=== PATIENT | female | born 1945 | race African-American/Black ===

== ENCOUNTER 2022-07-19 08:40 | Observation (INO) ==
[2022-07-19] MEDS ORDERED: SODIUM CHLORIDE 0.9% 1,000 ML IV STA (09:11)
[2022-07-19 09:28] LABS: Basophils # 0.1 10*3/uL (0.0-0.2); Basophils % 1.2 % (0.0-0.8); Eosinophils # 0.2 10*3/uL (0.0-0.87); Eosinophils % 2.8 % (0.00-10.9); Hematocrit 39.7 VOL% (35.7-47.0); Hemoglobin 12.2 GM/DL (12.0-16.0); Immature Granulocytes % 0.5 %; Immature Granulocytes Absolute 0.03 #; Lymphocytes # 1.5 10*3/uL (1.4-4.0); Lymphocytes % 22.8 % (21.3-54.2); Mean Corpuscular HGB Conc 30.7 GM/DL (32-36); Mean Corpuscular Volume 93.4 FL (87-102); Mean Platelet Volume 10.3 FL (9.6-12.0); Monocytes # 0.8 10*3/uL (0.11-0.8); Neutrophils % 59.7 % (38.7-73.9); Platelet Count 392 T/CUMM (130-400); Red Blood Count 4.25 MC/CUMM (3.8-5.5); Red Cell Distribution Width 14.9 % (9.3-17.3); White Blood Count 6.5 T/CUMM (4-12)
[2022-07-19 09:49] LABS: Albumin 2.7 G/DL (3.4-5.0); Bilirubin,Total 0.6 MG/DL (0.20-1.00); Calcium 10.2 MG/DL (8.5-10.1); Osmolality,Calculated 286.1 MOS/KG (273-304); Potassium 4.1 MMOL/L (3.5-5.1); Total Protein 7.3 G/DL (6.4-8.2)
[2022-07-19 10:16] LABS: Mucus,Urine Occasional /LPF (Occasional); RBC,Urine 1 /HPF (0-4)
[2022-07-19 10:17] LABS: Bilirubin,Urine Small mg/dL (Negative); Blood, Urine Negative (Negative); Glucose,Urine (UA) Negative (Negative); Ketones,Urine Trace mg/dL (Negative); Nitrite,Urine Negative (Negative); Protein,Urine 30 mg/dL (Negative); Urine Appearance Clear (Clear); Urine Color Yellow (Yellow)
[2022-07-19] MEDS ORDERED: ACETAMINOPHEN 325 MG TABLET PO PRN (12:37)
[2022-07-19] MEDS ORDERED: ONDANSETRON 4 MG/2 ML VIAL IV PRN (12:37)
[2022-07-19] MEDS: SODIUM CHLORIDE 0.9% 1,000 ML IV SCH (13:44)
[2022-07-19] MEDS ORDERED: hydrALAZINE 20 MG/1 ML VIAL IV PRN (14:47)
[2022-07-19] MEDS: ALBUTEROL/IPRATROPIUM 3 ML NEB RESP TX SCH ×2 (14:58→19:10)
[2022-07-19] MEDS: cefTRIAXone 1,000 MG in SODIUM CHLORIDE 0.9% 100 ML IV SCH (15:32)
[2022-07-19] MEDS: methylPREDNISolone SOD SUC 40 MG/1 ML VIAL IV SCH (15:33)
[2022-07-19] MEDS: DOCUSATE SODIUM 100 MG CAPSULE PO SCH ×2 (20:44→20:48)
[2022-07-20] MEDS: ALBUTEROL/IPRATROPIUM 3 ML NEB RESP TX SCH ×6 (02:34→18:23)
[2022-07-20] MEDS: methylPREDNISolone SOD SUC 40 MG/1 ML VIAL IV SCH ×2 (06:15→17:37)
[2022-07-20 07:44] LABS: Basophils % 0.1 % (0.0-0.8); Hematocrit 32.6 VOL% (35.7-47.0); Hemoglobin 10.3 GM/DL (12.0-16.0); Immature Granulocytes % 0.6 %; Immature Granulocytes Absolute 0.04 #; Lymphocytes # 0.9 10*3/uL (1.4-4.0); Lymphocytes % 13.7 % (21.3-54.2); Mean Corpuscular HGB Conc 31.6 GM/DL (32-36); Mean Corpuscular Volume 90.8 FL (87-102); Mean Platelet Volume 10.1 FL (9.6-12.0); Monocytes # 0.4 10*3/uL (0.11-0.8); Monocytes % 5.4 % (1.7-12.7); Neutrophils % 80.2 % (38.7-73.9); Platelet Count 337 T/CUMM (130-400); Red Blood Count 3.59 MC/CUMM (3.8-5.5); Red Cell Distribution Width 14.6 % (9.3-17.3); White Blood Count 6.8 T/CUMM (4-12)
[2022-07-20 07:53] LABS: Calcium 8.8 MG/DL (8.5-10.1); Osmolality,Calculated 283.3 MOS/KG (273-304); Potassium 4.1 MMOL/L (3.5-5.1)
[2022-07-20] MEDS: SODIUM CHLORIDE 0.9% 1,000 ML IV SCH ×3 (08:45→21:05)
[2022-07-20] MEDS: PANTOPRAZOLE 40 MG TABLET PO SCH (08:46)
[2022-07-20] MEDS: DOCUSATE SODIUM 100 MG CAPSULE PO SCH ×2 (08:46→21:07)
[2022-07-20] MEDS ORDERED: hydrALAZINE 20 MG/1 ML VIAL IV PRN (12:48)
[2022-07-20] MEDS: cefTRIAXone 1,000 MG in SODIUM CHLORIDE 0.9% 100 ML IV SCH (17:36)
[2022-07-21] MEDS: ALBUTEROL/IPRATROPIUM 3 ML NEB RESP TX SCH ×6 (02:21→20:21)
[2022-07-21] MEDS: SODIUM CHLORIDE 0.9% 1,000 ML IV SCH (05:42)
[2022-07-21] MEDS: methylPREDNISolone SOD SUC 40 MG/1 ML VIAL IV SCH (05:42)
[2022-07-21] MEDS: PANTOPRAZOLE 40 MG TABLET PO SCH (08:01)
[2022-07-21] MEDS: DOCUSATE SODIUM 100 MG CAPSULE PO SCH ×2 (08:01→20:09)
[2022-07-21] MEDS: predniSONE 20 MG TABLET PO SCH (10:26)
[2022-07-21] MEDS: CEFDINIR 300 MG CAPSULE PO SCH ×2 (10:26→16:59)
[2022-07-21] MEDS ORDERED: TUBERCULIN SKIN TEST 0.1 ML SYRINGE INTRADERM ONE (13:56)
[2022-07-22] MEDS: ALBUTEROL/IPRATROPIUM 3 ML NEB RESP TX SCH ×7 (00:16→22:14)
[2022-07-22] MEDS: predniSONE 20 MG TABLET PO SCH (09:23)
[2022-07-22] MEDS: CEFDINIR 300 MG CAPSULE PO SCH ×2 (09:23→18:35)
[2022-07-22] MEDS: DOCUSATE SODIUM 100 MG CAPSULE PO SCH ×2 (09:23→20:36)
[2022-07-22] MEDS: PANTOPRAZOLE 40 MG TABLET PO SCH (09:23)
[2022-07-23] MEDS: ALBUTEROL/IPRATROPIUM 3 ML NEB RESP TX SCH ×4 (03:59→14:00)
[2022-07-23] MEDS: CEFDINIR 300 MG CAPSULE PO SCH (08:28)
[2022-07-23] MEDS: DOCUSATE SODIUM 100 MG CAPSULE PO SCH (08:29)
[2022-07-23] MEDS: predniSONE 20 MG TABLET PO SCH (08:29)
[2022-07-23] MEDS: PANTOPRAZOLE 40 MG TABLET PO SCH (08:29)
[2022-07-23] MEDS ORDERED: IPRATROPIUM 500 MCG/2.5 ML NEB RESP TX ONE (11:01)
[2022-07-23] MEDS ORDERED: ALBUTEROL 2.5 MG/3 ML NEB RESP TX ONE ×2 (11:05→13:56)
[2022-07-23 11:15] VITALS: BP 149/84
== END 2022-07-23 14:30 | disposition home health service (06) ==
LOC: N.ED 08:40 → N.EDINP 08:40 → N.3E 14:27
PROVIDERS: ADMIT Family Medicine; ATTEND Family Medicine